=== PATIENT | female | born 1960 | race Caucasian/White ===

== ENCOUNTER 2018-11-27 17:05 | Emergency (ER) | payer OTHER ==
[~2018-11-27] VITALS: Ht 161.3 cm; Wt 92.0 kg
[2018-11-27] MEDS ORDERED: LIDOCAINE 2% 20 ML VIAL. IJ ONE (17:45)
--- NOTE | 2018-11-27 17:49 | PHYS DOC ---
Past History Past Medical History: A-Fib, CHF, Hypertension, Other Past Surgical History: Cholecystectomy, , Tubal ligation, Other Alcohol Use: Occasionally Adult General Chief Complaint Chief Complaint: LACERATION/AVULSION HPI HPI 58-year-old female presents with left finger laceration. She was cutting rope with a brand-new knife when a wasp flew around her and startled her. She accidentally lacerated her little finger on the left hand. Patient is on Pradaxa , so the laceration has not stopped bleeding. Her tetanus shot one month ago. She denies any other complaints Review of Systems Review of Systems Constitutional: Denies fever or chills [] Eyes: Denies change in visual acuity, redness, or eye pain [] HENT: Denies nasal congestion or sore throat [] Respiratory: Denies cough or shortness of breath [] Cardiovascular: No additional information not addressed in HPI [] GI: Denies abdominal pain, nausea, vomiting, bloody stools or diarrhea [] : Denies dysuria or hematuria [] Musculoskeletal: Denies back pain or joint pain [] Integument: Laceration[] Neurologic: Denies headache, focal weakness or sensory changes [] Endocrine: Denies polyuria or polydipsia [] All other systems were reviewed and found to be within normal limits, except as documented in this note. Allergies Allergies Allergies Coded Allergies Type Severity Reaction Last Updated Verified metaxalone Allergy Unknown 11/27/18 Yes sulfamethoxazole Allergy Unknown 11/27/18 Yes trimethoprim Allergy Unknown 11/27/18 Yes Physical Exam Physical Exam Constitutional: Well developed, well nourished, no acute distress, non-toxic appearance. [] HENT: Normocephalic, atraumatic, bilateral external ears normal, oropharynx moist, no oral exudates, nose normal. [] Eyes: PERRLA, EOMI, conjunctiva normal, no discharge. [] Neck: Normal range of motion, no tenderness, supple, no stridor. [] Cardiovascular:Heart rate regular rhythm, no murmur [] Lungs & Thorax: Bilateral breath sounds clear to auscultation [] Abdomen: Bowel sounds normal, soft, no tenderness, no masses, no pulsatile masses. [] Skin: 2.5 cm linear laceration of the left little finger[] Back: No tenderness, no CVA tenderness. [] Extremities: No tenderness, no cyanosis, no clubbing, ROM intact, no edema. [] Neurologic: Alert and oriented X 3, normal motor function, normal sensory function, no focal deficits noted. [] Psychologic: Affect normal, judgement normal, mood normal. [] Current Patient Data Vital Signs Vital Signs Date Time Temp Pulse Resp B/P (MAP) Pulse Ox O2 Delivery O2 Flow Rate FiO2 11/27/18 17:15 98.3 64 18 94 Room Air EKG EKG [] Radiology/Procedures Radiology/Procedures [] Course & Med Decision Making Course & Med Decision Making Pertinent Labs and Imaging studies reviewed. (See chart for details) I repaired the patient's laceration with sutures. See note for more details. Her tetanus is up-to-date. She is stable for discharge at this time. [] Dragon Disclaimer Dragon Disclaimer This electronic medical record was generated, in whole or in part, using a voice recognition dictation system. Laceration Repair Lac Repair Indication: []2.5 cm linear laceration of the left little finger Procedure: The I obtained consent from the patient for suture repair of her finger laceration. The wound was thoroughly cleansed with a Hibiclens saline solution. No foreign bodies were found. I anesthetized the area with 2% lidocaine. A total of 2 mL was used. Once the wound was properly anesthetized, I repaired the wound with 5 5-0 Ethilon sutures in an interrupted fashion. There was good skin approximation. The wound was then dressed with nonadhesive dressing and an overlying compression bandage. Total repaired wound length: [2.5 cm Other Items: [none] The patient tolerated the procedure well. Complications: none Departure Departure: Impression: Primary Impression: Laceration of left little finger Disposition: HOME, SELF-CARE Condition: IMPROVED Referrals: PCP,NO (PCP) Patient Instructions: Fingertip Laceration, Laceration Care, Adult, Easy-to- Read Problem Qualifiers Primary Impression: Laceration of left little finger Encounter type: initial encounter Damage to nail status: without damage Foreign body presence: without foreign body Qualified Codes: S61.217A - Laceration without foreign body of left little finger without damage to nail, initial encounter CARLITO PIERRE DO Nov 27, 2018 17:48
[2018-11-27 19:20] VITALS: BP 145/90
== END 2018-11-27 19:20 | disposition home or self-care (01) ==
LOC: ER 17:05
DX: S61.217A Laceration without foreign body of left little finger without damage to nail, initial encounter (principal); I48.91 Unspecified atrial fibrillation; I11.0 Hypertensive heart disease with heart failure; I50.9 Heart failure, unspecified; Z88.2 Allergy status to sulfonamides; Z88.1 Allergy status to other antibiotic agents; Z88.8 Allergy status to other drugs, medicaments and biological substances; W26.0XXA Contact with knife, initial encounter; Y93.89 Activity, other specified; Y92.89 Other specified places as the place of occurrence of the external cause; Y99.8 Other external cause status
CPT/HCPCS: 12001; 99283; J2001

== ENCOUNTER → 2021-10-26 | Outpatient (CLI) | payer OTHER ==
--- NOTE | 2021-10-26 17:17 | RAD ---
EXAM: Chest, 2 views. HISTORY: Shortness of breath. COMPARISON: None. FINDINGS: 2 views of the chest are obtained. There is no infiltrate, pleural effusion or pneumothorax . There is a prominent cardiac silhouette. IMPRESSION: No acute pulmonary finding. Electronically signed by: Barby Holder MD (10/26/2021 5:14 PM) [id number]
== END ==
LOC: RAD 16:41
PROVIDERS: ATTEND Specialist
DX: R06.02 Shortness of breath (principal)
CPT/HCPCS: 71046